=== PATIENT | female | born 1940 | race Caucasian/White ===

== ENCOUNTER → 2023-08-28 06:26 | Day surgery (SDC) | payer MEDICARE, OTHER, SELFPAY | LOC: GI 06:26 | PROVIDERS: ATTENDING PHYSICIAN Surgery | DX: R19.4 Change in bowel habit (principal); K57.30 Diverticulosis of large intestine without perforation or abscess without bleeding; R19.5 Other fecal abnormalities; Z09 Encounter for follow-up examination after completed treatment for conditions other than malignant neoplasm; Z98.0 Intestinal bypass and anastomosis status | CPT/HCPCS: 45330 ==

== ENCOUNTER 2023-12-22 13:18 | Emergency (ER) | payer MEDICARE, OTHER, SELFPAY ==
[2023-12-22 13:24] VITALS: BP 147/73
[2023-12-22 15:10] VITALS: BP 166/67
[2023-12-22 15:18] LABS: Urine Albumin Negative (Neg - Trace); Urine Bilirubin Negative (Negative); Urine Character Clear (Clear); Urine Color Yellow; Urine Glucose Negative (Negative); Urine Ketone Negative (Negative); Urine Leukocyte 1+ (Negative); Urine Nitrite Negative (Negative); Urine Occult Blood Negative (Negative); Urine Urobilinogen Negative (Neg - 1+)
[2023-12-22 15:21] LABS: % Basophils 1.8 % (0-2); % Eosinophils 2.9 % (0-6); % Immature Granulocytes 1.4 % (0-0.5); % Lymphocytes 16.1 % (20.5-51.1); % Monocytes 6.8 % (1.7-9.3); Absolute Basophils 0.1 10^3/uL (0-0.2); Absolute Eosinophils 0.1 10^3/uL (0-0.7); Absolute Lymphocytes 0.5 10^3/uL (1.2-3.4); Absolute Monocytes 0.2 10^3/uL (0.1-0.6); Hematocrit 27.1 % (37.0-47.0); Hemoglobin 9.3 g/dL (12.0-16.0); Mean Corp Hgb Conc. 34.3 g/dL (33.0-37.0); Mean Corpuscular Hgb 36.8 pg (27.0-31.0); Mean Corpuscular Volume 107.1 fL (81.0-99.0); Mean Platelet Volume 10.4 fL (7.4-10.4); Nucleated Red Blood Cells % 0 %; Platelet Count 184 10^3/uL (130-400); Red Blood Cell Count 2.53 10^6/uL (4.20-5.40); Red Cell Dist. Width 14.2 % (11.5-14.5); White Blood Cell Count 2.8 10^3/uL (4.8-10.8)
[2023-12-22 15:28] LABS: Urine Bacteria Few (Negative); Urine Red Blood Cell 0-2 /HPF (0-2)
--- NOTE | 2023-12-22 15:33 | ED.GENMED ---
History of Present Illness
General
Chief Complaint: Flank Pain
Source: patient
Exam Limitations: none
Time Seen by Provider: 12/22/23 15:07
Nursing documentation reviewed up to this point in time: agreed with
History of Present Illness
History of Present Illness:
Patient to ED with complaint of left flank pain. Pain started a few days ago, much worse this AM. Denies fever/chills. +nausesa, no v/d. No history of trauma. Pain manageable at rest, worse iwth movement. Taking oxycodeno without iprovement.
Brought to ED by spouse for eval.
Past History
Past History
ED Past Medical History: Cancer (Breast cancer with metastasis), GERD, HTN, Hypercholesterolemia, NIDDM and Other (Sleep apnea, sciatica, GERD)
ED Past Surgical History: Appendectomy, Orthopedic and Other ([facility])
Social History
Tobacco: Non-smoker
Alcohol: None
Review of Systems
Review of Systems
Allergies reviewed?: Yes
All Other Systems: ROS reviewed and negative except as documented in HPI and ROS
Constitutional: Reports no symptoms
EENT: Reports no symptoms
Respiratory: Reports no symptoms
Cardiac: Reports no symptoms
ABD/GI: Reports nausea
: Reports flank pain
Skin: Reports no symptoms
Neurological: Reports no symptoms
Psychiatric: Reports no symptoms
Phy Exam
General Physical Exam
General Presentation: well appearing and no apparent distress
General age: appears stated age
General Skin: warm
General Habitus: normal
General Mental: alert
Cardiovascular Exam
Cardiovascular Exam: regular rate/rhythm and no edema
Pulmonary Exam
Pulmonary Exam: lungs clear and no respiratory distress
Gastrointestinal Exam
Gastrointestinal Exam: normal bowel sounds, non tender, soft, no organomegaly, non distended and no cva tenderness
Musculoskeletal Exam
Musculoskeletal Exam: back pain and neuro vasc intact
Skin Exam
Skin Exam: normal color, warm/dry and no rash
Psychiatric Exam
Psychiatric Exam: normal mood/affect
Course
Orders/Labs/Results
Orders:
Orders
12/22/23 15:07
Complete Blood Count/With Diff Urgent
Comprehensive Metabolic Panel Urgent
UA Reflex to Culture [Urinalysis Reflex To Culture] Urgent
Date Specimen was Collected: 12/22/23
Time Specimen was Collected: 14:56
Urine Microscopic Reflex Cult Urgent
Urine Culture Urgent
MIL Source: U
Specimen Description:
Date Specimen was Collected: 12/22/23
Time Specimen was Collected: 14:56
12/22/23 15:32
CT Abd/pel Without Iv Or Oral Urgent
Comment:
Reason For Exam: left flank pain
Abnormal Lab Results
12/22/23
15:07
WBC 2.8 L 10^3/uL
(4.8-10.8)
RBC 2.53 L 10^6/uL
(4.20-5.40)
Hgb 9.3 L g/dL
(12.0-16.0)
Hct 27.1 L %
(37.0-47.0)
MCV 107.1 H fL
(81.0-99.0)
MCH 36.8 H pg
(27.0-31.0)
Absolute Lymphs (auto) 0.5 L 10^3/uL
(1.2-3.4)
Immature Gran % 1.4 H %
(0-0.5)
Lymphocytes % 16.1 L %
(20.5-51.1)
BUN 34 H mg/dl
(7-17)
Glucose 119 H mg/dl
(70-99)
Leukocyte Esterase Rfl 1+ A
(Negative)
Urine Bacteria (Reflex) Few A
(Negative)
12/22/23 15:07
12/22/23 15:07
Vital Signs
Initial and Last Documented VS:
Initial Vital Signs
Temp Pulse Resp BP Pulse Ox
97.4 F 91 18 147/73 94
12/22/23 13:24 12/22/23 13:24 12/22/23 13:24 12/22/23 13:24 12/22/23 13:24
Last Documented Vital Signs
Temp Pulse Resp BP Pulse Ox
97.4 F 91 18 159/106 93
12/22/23 13:24 12/22/23 13:24 12/22/23 13:24 12/22/23 16:00 12/22/23 16:15
*Radiology
Radiology exam reviewed: radiology read reviewed
*Pulse Oximetry
Patient hypoxic: no
*Critical Care Note
Total Time (30-74mins, 75-104mins- exclusive of procedures): Not Applicable
ED Attending Note
-
Portions of this chart may have been created with voice recognition software.� Occasional wrong word or��sound alike� substitutions may have occurred due to the inherent limitations of voice recognition software.
Discharge Plan
Departure
Patient Disposition: Home (Routine Discharge)
Date of Disposition: 12/22/23
Time of Disposition: 17:57
Patient with high blood pressure during this ER visit?: No
Condition: Good
Covid-19: Not Applicable
Discharge Problem:
Flank pain
Instructions: Back Pain
Prescriptions:
New
oxycodone 5 mg capsule
5 mg PO Q4H PRN (Reason: Pain) Qty: 10 0RF
No Action
omeprazole 40 MG capsule,delayed release(DR/EC)
40 mg PO DAILY
hydrochlorothiazide 25 MG tablet
25 mg PO DAILY
losartan [Cozaar] 100 MG tablet
100 mg PO DAILY
letrozole 2.5 mg Tablet
2.5 mg PO DAILY
rosuvastatin [Crestor] 20 mg Tablet
20 mg PO QPM
Gemtesa 75 mg Tablet
75 mg PO DAILY
Patient Comments:
10/04/22-patent has samples from pcp
ferrous sulfate 325 mg (65 mg iron) Tablet,Delayed Release (Dr/Ec)
325 mg PO DAILY
calcitriol 0.25 mcg Capsule
0.25 mcg PO DAILY
Ibrance 125 mg Capsule
125 mg PO DAILY
Rx Instructions:
Holding it as of 12/14/22 per her oncologist
magnesium citrate,mag oxide
400 mg PO DAILY
naproxen sodium [Aleve] 220 mg Capsule
220 mg PO DAILY PRN (Reason: pain)
oxycodone 5 mg tablet
5 - 10 mg PO Q6H PRN (Reason: moderate-severe pain) Qty: 30 0RF
Rx Instructions:
1 tab for moderate pain, 2 if severe.
Dx total joint.
ondansetron HCl 4 mg tablet
4 mg PO Q6H PRN (Reason: nausea and vomiting) Qty: 20 0RF
Rx Instructions:
Take 1/2 hour prior to Oxycodone if experiencing recurrent nausea.
mupirocin 2 % ointment
1 applic intranasal BID Qty: 1 0RF
aspirin 325 mg tablet
325 mg PO DAILY Qty: 1 0RF
Rx Instructions:
Take with food
magnesium hydroxide [Milk of Magnesia] 400 mg/5 mL suspension
30 ml PO HS PRN (Reason: Constipation) Qty: 1 0RF
docusate sodium [Colace] 100 mg capsule
100 mg PO BID Qty: 1 0RF
acetaminophen 500 mg Capsule
1,000 mg PO QID Qty: 0 0RF
Referrals:
Jayla Haji MD [Family Provider] -
Interventions
Interventions:
*Risk Screen - Suicide Last Done: 12/22/23 15:11
*General Assessment Last Done: 12/22/23 15:11
*Neglect/Abuse Screening Last Done: 12/22/23 15:11
*ED COVID-19 Vaccine History Last Done: 12/22/23 15:11
*Nursing Disposition Last Done: 12/22/23 18:27
BX-Gfmxbl-Jdjcfrqdle Assessment Last Done: 12/22/23 15:08
ED-Female Genitourinary Assessment Last Done: 12/22/23 15:08
Discharge Date and Time
Discharge Date/Time: 12/22/23 18:28
Print Language: SWISS
[2023-12-22 15:35] LABS: ALT (SGPT) 11 U/L (0-35); AST (SGOT) 22 U/L (14-36); Albumin 4.5 g/dl (3.5-5.0); Alkaline Phosphatase 62 U/L (38-126); Blood Urea Nitrogen 34 mg/dl (7-17); Calcium 9.5 mg/dl (8.4-10.2); Carbon Dioxide 28 mmol/L (22-30); Chloride 101 mmol/L (98-107); Glucose 119 mg/dl (70-99); Potassium 4.1 mmol/L (3.5-5.1); Sodium 137 mmol/L (135-145); Total Bilirubin 0.8 mg/dl (0.2-1.3); Total Protein 6.9 g/dl (6.3-8.2)
[2023-12-22 16:00] VITALS: BP 159/106
== END 2023-12-22 18:28 | disposition home or self-care (01) ==
LOC: EMR 13:18
PROVIDERS: Emergency Medicine; EMERGENCY PHYSICIAN Emergency Medicine; FAMILY PHYSICIAN Internal Medicine
DX: R10.9 Unspecified abdominal pain (principal); R11.2 Nausea with vomiting, unspecified; I10 Essential (primary) hypertension; K21.9 Gastro-esophageal reflux disease without esophagitis; E78.00 Pure hypercholesterolemia, unspecified; E11.9 Type 2 diabetes mellitus without complications; M54.30 Sciatica, unspecified side; K57.90 Diverticulosis of intestine, part unspecified, without perforation or abscess without bleeding; G47.30 Sleep apnea, unspecified; M19.90 Unspecified osteoarthritis, unspecified site; Z85.3 Personal history of malignant neoplasm of breast; C79.51 Secondary malignant neoplasm of bone; Z85.828 Personal history of other malignant neoplasm of skin; Z96.652 Presence of left artificial knee joint
CPT/HCPCS: 99284; 74176; 80053; 81003; 81015; 85025; 87086

== ENCOUNTER 2024-09-19 14:37 | Emergency (ER) | payer MEDICARE, OTHER, SELFPAY ==
[2024-09-19] MEDS: TORADOL 15 MG IM (16:29)
[2024-09-19 16:32] VITALS: BP 131/97
--- NOTE | 2024-09-19 16:43 | ED.GENMED ---
History of Present Illness
General
Chief Complaint: Back Pain
Time Seen by Provider: 09/19/24 15:44
History of Present Illness
History of Present Illness:
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 Patient reports pain for the past month, however has worsened in the past
week. She has been taking oxycodone, Tylenol, Motrin. Denies known inciting injury or trauma. Denies numbness or tingling to her leg. Has had increased difficulty ambulating secondary to pain, has been using a walker. Denies bowel or bladder
issues. Denies fever. Reports remote history of sciatica several years ago. Pain from the right side of the back radiates all the way down to her leg. Denies additional acute medical complaints
Past History
Past History
ED Past Medical History: Cancer (Breast cancer with metastasis), GERD, HTN, Hypercholesterolemia, NIDDM and Other (Sleep apnea, sciatica, GERD)
ED Past Surgical History: Appendectomy, Orthopedic and Other ([facility])
Social History
Tobacco: Non-smoker
Alcohol: None
Phy Exam
Physical Exam
Physical Exam:
General: Well-appearing, no clinical signs of dehydration, nontoxic and in no acute distress
HEENT: protecting airway
Neck: appears supple
CV: Normal heart rate, regular rhythm
Resp: No accessory muscle use, no increased work of breathing, lungs clear to auscultation bilaterally
Abd: No distention
Extremities: No deformities, no swelling. No midline back tenderness. Tenderness to the right lumbar musculature into the right gluteal region. Range of motion to the right lower extremity is intact with distal sensation and pulses intact.
Neuro: alert, no focal neurologic deficit
: deferred
Rectal: deferred
Psych: Normal affect
Skin: Intact
Course
Orders/Labs/Results
Orders:
Orders
09/19/24 14:45
Crisis Consult Urgent
Reason for Consult: depression
Comment: hx of metastatic breast cancer with chronic pain
09/19/24 16:17
Ketorolac [Toradol] 15 mg IM NOW STA
Hip, Right 2-3 Views [CR Hip - RT w/wo Pel 2-3 Vw*] Urgent
Comment:
Reason For Exam: pain, suspected sciatica
Include a pelvis x-ray?: Yes
Abnormal Lab Results
09/19/24
17:41
POC Glucose 110 H mg/dl
(70-99)
Vital Signs
Initial and Last Documented VS:
Initial Vital Signs
BP
131/97
09/19/24 16:32
Last Documented Vital Signs
Temp Pulse Resp BP Pulse Ox
98.2 F 80 16 131/97 98
09/19/24 17:38 09/19/24 17:38 09/19/24 17:38 09/19/24 16:32 09/19/24 17:38
MDM/Problems Addressed
MDM/Problems Addressed:
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 Vital signs on arrival are normal
On exam patient is resting comfortably, no acute distress or discomfort. Symptom presentation and physical exam appears most consistent with sciatica. No midline spinal tenderness. Some generalized tenderness to the right gluteal region.
Pathological hip fracture is a consideration given history of metastasis. Will screen with x-ray imaging, however range of motion is grossly intact without any neurovascular compromise. No fever, systemic symptoms, or midline tenderness, without
concern for spinal abscess or infection. No red flag such as bowel or bladder incontinence, focal weakness, or any sensory deficits on exam, without present concern for spinal compression. Will treat with Toradol and reassess for improvement, had
oxycodone prior to arrival.
17:50 - X-ray without any significant acute pathology. Continue to suspect sciatic component. Did offer oral steroids, however patient is diabetic. Patient like to proceed with steroids, notes that her glucose is controlled. Will check glucose
level. However ultimately feel stable for discharge with continued outpatient supportive therapy. Patient feels comfortable going home with follow-up with pain management. Return precautions discussed the patient verbalized understanding. Of
note, in patient suicide screen, did report some hopelessness. Crisis at bedside, offered resources, no concern for self-harm behavior.
*Critical Care Note
Total Time (30-74mins, 75-104mins- exclusive of procedures): Not Applicable
ED Attending Note
-
Portions of this chart may have been created with voice recognition software.� Occasional wrong word or��sound alike� substitutions may have occurred due to the inherent limitations of voice recognition software.
Discharge Plan
Departure
Prescriptions:
No Action
omeprazole 40 MG capsule,delayed release(DR/EC)
40 mg PO DAILY
hydrochlorothiazide 25 MG tablet
25 mg PO DAILY
losartan [Cozaar] 100 MG tablet
100 mg PO DAILY
letrozole 2.5 mg Tablet
2.5 mg PO DAILY
rosuvastatin [Crestor] 20 mg Tablet
20 mg PO QPM
Gemtesa 75 mg Tablet
75 mg PO DAILY
Patient Comments:
10/04/22-patent has samples from pcp
ferrous sulfate 325 mg (65 mg iron) Tablet,Delayed Release (Dr/Ec)
325 mg PO DAILY
calcitriol 0.25 mcg Capsule
0.25 mcg PO DAILY
Ibrance 125 mg Capsule
125 mg PO DAILY
Rx Instructions:
Holding it as of 12/14/22 per her oncologist
magnesium citrate,mag oxide
400 mg PO DAILY
naproxen sodium [Aleve] 220 mg Capsule
220 mg PO DAILY PRN (Reason: pain)
oxycodone 5 mg tablet
5 - 10 mg PO Q6H PRN (Reason: moderate-severe pain) Qty: 30 0RF
Rx Instructions:
1 tab for moderate pain, 2 if severe.
Dx total joint.
ondansetron HCl 4 mg tablet
4 mg PO Q6H PRN (Reason: nausea and vomiting) Qty: 20 0RF
Rx Instructions:
Take 1/2 hour prior to Oxycodone if experiencing recurrent nausea.
mupirocin 2 % ointment
1 applic intranasal BID Qty: 1 0RF
aspirin 325 mg tablet
325 mg PO DAILY Qty: 1 0RF
Rx Instructions:
Take with food
magnesium hydroxide [Milk of Magnesia] 400 mg/5 mL suspension
30 ml PO HS PRN (Reason: Constipation) Qty: 1 0RF
docusate sodium [Colace] 100 mg capsule
100 mg PO BID Qty: 1 0RF
acetaminophen 500 mg Capsule
1,000 mg PO QID Qty: 0 0RF
oxycodone 5 mg capsule
5 mg PO Q4H PRN (Reason: Pain) Qty: 10 0RF
Referrals:
Jayla Haji MD [Family Provider] -
Interventions
Interventions:
*Risk Screen - Suicide Last Done: 09/19/24 14:40
*General Assessment Last Done: 09/19/24 14:40
*Neglect/Abuse Screening Last Done: 09/19/24 16:28
*ED- Fall Risk Assessment Last Done: 09/19/24 16:28
*ED COVID-19 Vaccine History Last Done: 09/19/24 16:28
ED-Musculoskeletal Assessment Last Done: 09/19/24 16:33
Discharge Date and Time
Print Language: WELSH
[2024-09-19 17:42] LABS: Glucose - Point of Care 110 mg/dl (70-99)
== END 2024-09-19 18:13 | disposition home or self-care (01) ==
LOC: EMR 14:37
PROVIDERS: EMERGENCY PHYSICIAN Student in an Organized Health Care Education/Training Program; FAMILY PHYSICIAN Internal Medicine
DX: M54.41 Lumbago with sciatica, right side (principal); K21.9 Gastro-esophageal reflux disease without esophagitis; I10 Essential (primary) hypertension; E78.00 Pure hypercholesterolemia, unspecified; E11.9 Type 2 diabetes mellitus without complications; G47.30 Sleep apnea, unspecified; F32.A Depression, unspecified; Z85.3 Personal history of malignant neoplasm of breast; Z90.49 Acquired absence of other specified parts of digestive tract
CPT/HCPCS: 99283; 96372; 73502; 82962

== ENCOUNTER 2024-09-26 17:10 | Emergency (ER) | payer MEDICARE, OTHER, SELFPAY ==
[2024-09-26 17:20] VITALS: BP 174/98
[2024-09-26 17:33] LABS: Urine Albumin 3+ (Neg - Trace); Urine Bilirubin Negative (Negative); Urine Character Cloudy (Clear); Urine Color Red; Urine Glucose Negative (Negative); Urine Ketone Negative (Negative); Urine Leukocyte 3+ (Negative); Urine Nitrite Negative (Negative); Urine Occult Blood 4+ (Negative); Urine Urobilinogen Negative (Neg - 1+)
[2024-09-26 17:40] LABS: Urine Bacteria Moderate (Negative); Urine Red Blood Cell >100 /HPF (0-2); Urine Squamous Cell 0-2 /LPF (Few); Urine White Cell 90-100 /HPF (0-5)
--- NOTE | 2024-09-26 19:37 | ED.GENMED ---
History of Present Illness
General
Chief Complaint: Urinary Symptoms
Source: patient
Exam Limitations: none
Time Seen by Provider: 09/26/24 19:25
Nursing documentation reviewed up to this point in time: agreed with
History of Present Illness
History of Present Illness:
Patient to ED with complaint of urinary frequency and cloudy urine. Symptoms started yesterday. She denies fever/chills, abominal or back pain, n/v. Brought to ED by spouse for eval.
Past History
Past History
ED Past Medical History: Cancer (Breast cancer with metastasis), GERD, HTN, Hypercholesterolemia, NIDDM and Other (Sleep apnea, sciatica, GERD)
ED Past Surgical History: Appendectomy, Orthopedic and Other ([facility])
Social History
Tobacco: Non-smoker
Alcohol: None
Phy Exam
General Physical Exam
General Presentation: well appearing and no apparent distress
General age: appears stated age
General Skin: warm and dry
General Habitus: normal
General Mental: alert
Gastrointestinal Exam
Gastrointestinal Exam: normal bowel sounds, non tender, soft, no organomegaly, no pulsatile mass, non distended and no cva tenderness
Musculoskeletal Exam
Musculoskeletal Exam: full ROM and neuro vasc intact
Skin Exam
Skin Exam: normal color, warm/dry and no rash
Psychiatric Exam
Psychiatric Exam: normal mood/affect
Sepsis
Sepsis Screening
Sepsis Assessment: Sepsis Ruled Out (NO evidence of sepsis on exam. SHe has been afebrile. Denies chills. No back or abdominal pain. No vomiting. Neurologically baseline. No sepsis work-up indicated.)
Sepsis Screen
Sepsis Screen: Sepsis Ruled Out
Date: 09/27/24
Time: 16:31
Course
Orders/Labs/Results
Orders:
Orders
09/26/24 17:22
Urinalysis Reflex To Culture Urgent
Date Specimen was Collected: 09/26/24
Time Specimen was Collected: 17:16
Urine Microscopic Reflex Cult Urgent
Urine Culture Urgent
MIL Source: U
Specimen Description:
Date Specimen was Collected: 09/26/24
Time Specimen was Collected: 17:16
09/26/24 19:32
Cephalexin Monohydrate [Keflex] 500 mg PO NOW STA
Abnormal Lab Results
09/26/24
17:22
Ur Occult Blood Reflex 4+ A
(Negative)
Leukocyte Esterase Rfl 3+ A
(Negative)
Urine RBC >100 A /HPF
(0-2)
Urine WBC (Reflex) 90-100 A /HPF
(0-5)
Urine Bacteria (Reflex) Moderate A
(Negative)
Urine Albumin (Reflex) 3+ A
(Neg - Trace)
Vital Signs
Initial and Last Documented VS:
Initial Vital Signs
Temp Pulse Resp BP Pulse Ox
97.2 F 94 22 174/98 95
09/26/24 17:20 09/26/24 17:20 09/26/24 17:20 09/26/24 17:20 09/26/24 17:20
Last Documented Vital Signs
Temp Pulse Resp BP Pulse Ox
97.2 F 94 22 174/98 95
09/26/24 17:20 09/26/24 17:20 09/26/24 17:20 09/26/24 17:20 09/26/24 17:20
*Pulse Oximetry
Patient hypoxic: no
*Critical Care Note
Total Time (30-74mins, 75-104mins- exclusive of procedures): Not Applicable
Update Note
Update Note:
Patient to ED with complaint of urinary frequency and cloudy urine x 24 hours. UA today confirms UTI. Urine culture sent and results are pending. Started on Keflex in ED, rx sent to pharmacy. She remains afebrile, no abdominal or back pain. No
vomiting. Non toxic appearing. Will discharge home and she will follow up with PCP. Given instructions on s/s to return to ED and she is agreeable to plan.
ED Attending Note
-
Portions of this chart may have been created with voice recognition software.� Occasional wrong word or��sound alike� substitutions may have occurred due to the inherent limitations of voice recognition software.
Discharge Plan
Departure
Patient Disposition: Home (Routine Discharge)
Date of Disposition: 09/26/24
Time of Disposition: 19:33
Patient with high blood pressure during this ER visit?: No
Condition: Good
Covid-19: Not Applicable
Discharge Problem:
UTI (urinary tract infection)
Instructions: Urinary Tract Infection, Adult (DC)
Prescriptions:
New
cephalexin 500 mg capsule
500 mg PO BID 7 Days Qty: 14 0RF
No Action
omeprazole 40 MG capsule,delayed release(DR/EC)
40 mg PO DAILY
hydrochlorothiazide 25 MG tablet
25 mg PO DAILY
losartan [Cozaar] 100 MG tablet
100 mg PO DAILY
letrozole 2.5 mg Tablet
2.5 mg PO DAILY
rosuvastatin [Crestor] 20 mg Tablet
20 mg PO QPM
Gemtesa 75 mg Tablet
75 mg PO DAILY
Patient Comments:
10/04/22-patent has samples from pcp
ferrous sulfate 325 mg (65 mg iron) Tablet,Delayed Release (Dr/Ec)
325 mg PO DAILY
calcitriol 0.25 mcg Capsule
0.25 mcg PO DAILY
Ibrance 125 mg Capsule
125 mg PO DAILY
Rx Instructions:
Holding it as of 12/14/22 per her oncologist
magnesium citrate,mag oxide
400 mg PO DAILY
naproxen sodium [Aleve] 220 mg Capsule
220 mg PO DAILY PRN (Reason: pain)
oxycodone 5 mg tablet
5 - 10 mg PO Q6H PRN (Reason: moderate-severe pain) Qty: 30 0RF
Rx Instructions:
1 tab for moderate pain, 2 if severe.
Dx total joint.
ondansetron HCl 4 mg tablet
4 mg PO Q6H PRN (Reason: nausea and vomiting) Qty: 20 0RF
Rx Instructions:
Take 1/2 hour prior to Oxycodone if experiencing recurrent nausea.
mupirocin 2 % ointment
1 applic intranasal BID Qty: 1 0RF
aspirin 325 mg tablet
325 mg PO DAILY Qty: 1 0RF
Rx Instructions:
Take with food
magnesium hydroxide [Milk of Magnesia] 400 mg/5 mL suspension
30 ml PO HS PRN (Reason: Constipation) Qty: 1 0RF
docusate sodium [Colace] 100 mg capsule
100 mg PO BID Qty: 1 0RF
acetaminophen 500 mg Capsule
1,000 mg PO QID Qty: 0 0RF
oxycodone 5 mg capsule
5 mg PO Q4H PRN (Reason: Pain) Qty: 10 0RF
ketorolac 10 mg tablet
10 mg PO Q8H PRN (Reason: Pain) 5 Days Qty: 15 0RF
Activity Restrictions/Additional Instructions:
Follow up with your family doctor. Return to the emergency department immediately for fever/chills, pain in your abdomen or back (different from your typical back pain), vomiting, or for any further concerns.
Interventions
Interventions:
*Risk Screen - Suicide Last Done: 09/26/24 17:20
*General Assessment Last Done: 09/26/24 17:20
*Neglect/Abuse Screening Last Done: 09/26/24 17:20
*Nursing Disposition Last Done: 09/26/24 20:05
ED-Female Genitourinary Assessment Last Done: 09/26/24 20:00
Discharge Date and Time
Discharge Date/Time: 09/26/24 20:05
Print Language: [place]
[2024-09-26] MEDS: KEFLEX 500 MG PO (20:01)
== END 2024-09-26 20:05 | disposition home or self-care (01) ==
LOC: EMR 17:10
PROVIDERS: Emergency Medicine; EMERGENCY PHYSICIAN Student in an Organized Health Care Education/Training Program; FAMILY PHYSICIAN Internal Medicine
DX: N39.0 Urinary tract infection, site not specified (principal); I10 Essential (primary) hypertension; K21.9 Gastro-esophageal reflux disease without esophagitis; E78.00 Pure hypercholesterolemia, unspecified; G47.30 Sleep apnea, unspecified; E11.36 Type 2 diabetes mellitus with diabetic cataract; C79.51 Secondary malignant neoplasm of bone; M54.30 Sciatica, unspecified side; K57.90 Diverticulosis of intestine, part unspecified, without perforation or abscess without bleeding; M19.90 Unspecified osteoarthritis, unspecified site; Z96.652 Presence of left artificial knee joint; Z85.3 Personal history of malignant neoplasm of breast; Z85.828 Personal history of other malignant neoplasm of skin; Z92.3 Personal history of irradiation; Z98.0 Intestinal bypass and anastomosis status
CPT/HCPCS: 99283; 81003; 81015; 87086

== ENCOUNTER 2024-10-07 04:28 | Inpatient (IN) | payer MEDICARE, OTHER, SELFPAY ==
[2024-10-06 17:45] VITALS: BP 182/120
[2024-10-06 19:58] VITALS: BP 170/96
[2024-10-06 22:14] VITALS: BP 153/73
--- NOTE | 2024-10-06 22:25 | ED.GENMED ---
History of Present Illness
General
Chief Complaint: Musculo-Skeletal Complaint
Source: patient
Exam Limitations: none
Time Seen by Provider: 10/06/24 22:17
History of Present Illness
History of Present Illness:
See MDM
Past History
Past History
ED Past Medical History: Cancer (Breast cancer with metastasis), GERD, HTN, Hypercholesterolemia, NIDDM and Other (Sleep apnea, sciatica, GERD)
ED Past Surgical History: Appendectomy, Orthopedic and Other ([facility])
Social History
Tobacco: Non-smoker
Alcohol: None
Phy Exam
Physical Exam
Physical Exam:
See MDM
Course
Orders/Labs/Results
Orders:
Orders
10/06/24 22:23
CT Abd/pel Without Iv Or Oral Urgent
Comment:
Reason For Exam: R flank pain
Morphine Sulfate 4 mg IV NOW STA
10/06/24 22:24
Urinalysis Reflex To Culture Urgent
10/06/24 22:49
Complete Blood Count/With Diff Urgent
Comprehensive Metabolic Panel Urgent
Magnesium Urgent
Comment: ADDED
10/06/24 23:37
Add On- LAB Urgent
Tests Added?: Magnesium
Calcium Gluconate 1,000 mg IV NOW STA
10/07/24 00:48
Morphine Sulfate 4 mg IV NOW STA
10/07/24 00:58
Electrocardiogram (*1) Urgent
Reason for Study: Fatigue / Weakness
EKG- Treatment ONCE
10/07/24 01:55
Magnesium Sulfate 4 Gram/100Ml [Magnesium Sulfate] 4 gram in 100 ml IV NOW
Abnormal Lab Results
10/06/24
22:49
WBC 2.6 L 10^3/uL
(4.8-10.8)
RBC 2.28 L 10^6/uL
(4.20-5.40)
Hgb 8.2 L g/dL
(12.0-16.0)
Hct 23.7 L %
(37.0-47.0)
MCV 103.9 H fL
(81.0-99.0)
MCH 36.0 H pg
(27.0-31.0)
RDW 15.4 H %
(11.5-14.5)
Plt Count 118 L 10^3/uL
(130-400)
MPV 10.8 H fL
(7.4-10.4)
Absolute Lymphs (auto) 0.2 L 10^3/uL
(1.2-3.4)
Immature Gran % 1.1 H %
(0-0.5)
Neutrophils % 83.8 H %
(42.2-75.2)
Lymphocytes % 8.3 L %
(20.5-51.1)
Glucose 128 H mg/dl
(70-99)
Calcium 6.4 L* mg/dl
(8.4-10.2)
Magnesium 0.9 L* mg/dl
(1.6-2.3)
Total Protein 5.8 L g/dl
(6.3-8.2)
10/06/24 22:49
10/06/24 22:49
Vital Signs
Initial and Last Documented VS:
Initial Vital Signs
Temp Pulse Resp BP Pulse Ox
97.6 F 110 16 182/120 95
10/06/24 17:45 10/06/24 17:45 10/06/24 17:45 10/06/24 17:45 10/06/24 17:45
Last Documented Vital Signs
Temp Pulse Resp BP Pulse Ox
97.6 F 90 15 147/69 92
10/06/24 17:45 10/06/24 22:50 10/06/24 22:50 10/07/24 01:24 10/07/24 01:45
MDM/Problems Addressed
Differential Diagnosis Includes:
HPI and MDM Narrative:
84-year-old female presenting for evaluation of worsening back pain. Patient took oxycodone at home with minimal relief. Patient states this feels like her sciatica. However, she has a negative straight leg raise. The pain distribution appears
to be along the proximal IT band. But she also points to her inguinal canal. This was associated with back pain earlier. Will obtain CT to rule out kidney stone pathology versus hernia. Patient was recently seen emergency department and treated
as a UTI. Urine culture with mixed alba. Will recheck urine
Physical exam
General: Well appearing and non-toxic
HEENT: protecting airway
Neck: appears supple
CV: No evidence of cyanosis
Resp: No accessory muscle use
Abd: Non-distended and nontender
Back: no tenderness
Extremities: No deformities. Mild tenderness to right inguinal canal and proximal IT band
Neuro: alert
Psych: Normal affect
Skin: Intact
Problems Addressed including Acute and Chronic Conditions affecting care:
1. Flank pain
Acuity: acute
Prognosis: stable
Details: Will obtain CT
2. Cloudy urine
Acuity: acute
Prognosis: stable
Details: Will recheck urinalysis
Updates
Patient found to be hypocalcemic. Patient given dose of IV calcium. Will obtain magnesium level as well
Patient also found to be hypomagnesemia. Will replete and admit
Differential Diagnosis (but not limited to): Pyonephritis, UTI, muscle strain, sciatica
Testing considered: Pelvic x-ray
Drug therapy (if applicable): OTC meds, please see d/c instruction regarding Rx drugs
Amount and/or Complexity of Data Reviewed
Clinical info obtained from: Patient
External data reviewed: Recent urine culture showed mixed alba
Labs I independently reviewed (but not limited to): Low magnesium, low calcium
Radiology: The CT scan was personally and independently reviewed. In addition, official CT report reviewed.
Pulse Ox: not hypoxic
EKG independently reviewed: Sinus rhythm, normal axis, no STEMI
Dough Scaler And Mixer: N/A
Critical Care: N/A
Risk of Complication:
Social Determinants of health: Good social support
Discussed with other providers: Hospitalist
Escalation of Care includes Admit/Obs: Given the low magnesium and calcium, will admit
Occasional wrong word or 'sound a like' substitutions may have occurred due to the inherent limitations of voice recognition software. Read the chart carefully and recognize, using context, where substitutions have occurred.
*Critical Care Note
Total Time (30-74mins, 75-104mins- exclusive of procedures): Not Applicable
ED Attending Note
-
Portions of this chart may have been created with voice recognition software.� Occasional wrong word or��sound alike� substitutions may have occurred due to the inherent limitations of voice recognition software.
Discharge Plan
Departure
Patient Disposition: Admit
Date of Disposition: 10/07/24
Time of Disposition: 00:57
Admit to: Telemetry
Presentation/result/management discussed w/ accepting MD/DO: Hospitalist
Discharge Problem:
Hypocalcemia, Hypomagnesemia, Sciatica
Prescriptions:
No Action
omeprazole 40 MG capsule,delayed release(DR/EC)
40 mg PO DAILY
hydrochlorothiazide 25 MG tablet
25 mg PO DAILY
letrozole 2.5 mg Tablet
2.5 mg PO DAILY
rosuvastatin [Crestor] 20 mg Tablet
20 mg PO QPM
Gemtesa 75 mg Tablet
75 mg PO DAILY
Patient Comments:
10/04/22-patent has samples from pcp
ferrous sulfate 325 mg (65 mg iron) Tablet,Delayed Release (Dr/Ec)
325 mg PO DAILY
calcitriol 0.25 mcg Capsule
0.25 mcg PO DAILY
Ibrance 125 mg Capsule
125 mg PO DAILY
Rx Instructions:
Holding it as of 12/14/22 per her oncologist
naproxen sodium [Aleve] 220 mg Capsule
220 mg PO DAILY PRN (Reason: pain)
oxycodone 5 mg tablet
5 - 10 mg PO Q6H PRN (Reason: moderate-severe pain) Qty: 30 0RF
Rx Instructions:
1 tab for moderate pain, 2 if severe.
Dx total joint.
ondansetron HCl 4 mg tablet
4 mg PO Q6H PRN (Reason: nausea and vomiting) Qty: 20 0RF
Rx Instructions:
Take 1/2 hour prior to Oxycodone if experiencing recurrent nausea.
aspirin 325 mg tablet
325 mg PO DAILY Qty: 1 0RF
Rx Instructions:
Take with food
acetaminophen 500 mg Capsule
1,000 mg PO QID Qty: 0 0RF
Referrals:
UNKNOWN - PT DOES,NOT KNOW [Unknown Provider]
Interventions
Interventions:
*Risk Screen - Suicide Last Done: 10/06/24 17:45
ED-Musculoskeletal Assessment Last Done: 10/06/24 23:02
Discharge Date and Time
Print Language: GUATEMALAN
[2024-10-06] MEDS: MORPHINE SULFATE 4 MG IV (22:43)
[2024-10-06 22:50] VITALS: BP 153/73; BMI 27.1
[2024-10-06 23:00] VITALS: BP 145/70
[2024-10-06 23:03] LABS: % Basophils 1.1 % (0-2); % Eosinophils 0.4 % (0-6); % Immature Granulocytes 1.1 % (0-0.5); % Lymphocytes 8.3 % (20.5-51.1); % Monocytes 5.3 % (1.7-9.3); % Neutrophils 83.8 % (42.2-75.2); Absolute Lymphocytes 0.2 10^3/uL (1.2-3.4); Absolute Monocytes 0.1 10^3/uL (0.1-0.6); Absolute Neutrophils 2.2 10^3/uL (1.4-6.5); Hematocrit 23.7 % (37.0-47.0); Hemoglobin 8.2 g/dL (12.0-16.0); Mean Corp Hgb Conc. 34.6 g/dL (33.0-37.0); Mean Corpuscular Volume 103.9 fL (81.0-99.0); Mean Platelet Volume 10.8 fL (7.4-10.4); Nucleated Red Blood Cells % 0 %; Platelet Count 118 10^3/uL (130-400); Red Blood Cell Count 2.28 10^6/uL (4.20-5.40); Red Cell Dist. Width 15.4 % (11.5-14.5); White Blood Cell Count 2.6 10^3/uL (4.8-10.8)
[2024-10-06 23:18] LABS: ALT (SGPT) < 10 U/L (0-35); AST (SGOT) 19 U/L (14-36); Albumin 3.8 g/dl (3.5-5.0); Alkaline Phosphatase 64 U/L (38-126); Blood Urea Nitrogen 16 mg/dl (7-17); Calcium 6.4 mg/dl (8.4-10.2); Carbon Dioxide 24 mmol/L (22-30); Chloride 107 mmol/L (98-107); Estimated Creatinine Clearance 53 ml/min; Glucose 128 mg/dl (70-99); Potassium 3.8 mmol/L (3.5-5.1); Sodium 139 mmol/L (135-145); Total Bilirubin 1.3 mg/dl (0.2-1.3); Total Protein 5.8 g/dl (6.3-8.2); eGFR > 60.00
[2024-10-07] VITALS (14 sets, daily range): BP systolic 121–200; BP diastolic 57–99; PULSE 106; BMI 26.6
[2024-10-07] MEDS: CALCIUM GLUCONATE 1000 MG IV (00:10)
[2024-10-07 00:35] LABS: Magnesium 0.9 mg/dl (1.6-2.3)
[2024-10-07] MEDS: MORPHINE SULFATE 4 MG IV (01:21)
[2024-10-07] MEDS: MAGNESIUM SULFATE 100 IV (02:17)
--- NOTE | 2024-10-07 03:59 | HPS.HSE ---
Family Physician
-
Family Physician: Jayla Haji
Chief Complaint
-
Weakness, N/V
History of Present Illness
Patient is an 84y F with PMH significant for breast cancer metastatic to bone, hypertension and sciatic pain who presents to ED complaining of 'not feeling well'. Patient states that she had a sense of feeling poorly throughout the day today.
She has difficulty being more specific. She has been dealing with RLE radicular pain recently and had LESI about 2 weeks ago without relief. She reports L sided facial pain / pressure which has also been ongoing for some time. On review of
systems, patient reveals that she has had N/V for the past 2-3 days. A few loose stools.
No fevers / chills.
No new medications.
Patient notes that she has not been taking her calcitriol or magnesium supplements - she is not sure why.
Medical History
Past Medical History
Past Medical History: Reports Other
Additional Past Medical History:
Breast Cancer Metastatic to Bone
Vulvar Cancer
Hypertension
Pancytopenia
OAB
Colovesicular Fistula
Past Surgical History: Reports Other
Additional Past Surgical History:
Left Shoulder Surgery
Bilateral TKA
Right Lumpectomy
Appendectomy
Cholecystectomy
Vulvar Cancer Resection
Sigmoidectomy
Spinal Surgery
Social History
Tobacco: Non-smoker
Alcohol: None
Drug: None
Family History
Family History: Not pertinent
Allergies / Home Medications
Allergies reflects when Allergies were last updated in [facility].
Home Medications with original date entered in [facility]
Allergy/Medication List:
Allergies
Allergy/AdvReac Type Severity Reaction Status Date / Time
No Known Allergies Allergy Verified 10/06/24 17:45
Home Medications
omeprazole 40 mg capsule,delayed release 40 mg PO DAILY Gastrointestinal issue 05/26/19
hydrochlorothiazide 25 mg tablet 25 mg PO DAILY Fluid retention/Swelling 06/17/20
letrozole 2.5 mg tablet 2.5 mg PO DAILY Hormonal Agent 10/04/22
rosuvastatin 20 mg tablet (Crestor) 20 mg PO QPM High Cholesterol 10/04/22
vibegron 75 mg tablet (Gemtesa) 75 mg PO DAILY Urinary Issue 10/04/22
calcitriol 0.25 mcg capsule 0.25 mcg PO DAILY 12/21/22
ferrous sulfate 325 mg (65 mg iron) tablet,delayed release 325 mg PO DAILY 12/21/22
naproxen sodium 220 mg capsule (Aleve) 220 mg PO DAILY PRN pain 12/21/22
palbociclib 125 mg capsule (Ibrance) 125 mg PO DAILY 12/21/22
Held on 01/08/23. Instructions: resume when oncology and Lee advise
ondansetron HCl 4 mg tablet 4 mg PO Q6H PRN nausea and vomiting #20 tabs 12/25/22
oxycodone 5 mg tablet 5 - 10 mg (1 - 2 x 5 mg) PO Q6H PRN moderate-severe pain #30 tabs 12/25/22
acetaminophen 500 mg capsule 1,000 mg (2 x 500 mg) PO QID #0 caps 01/08/23
aspirin 325 mg tablet 325 mg PO DAILY blood clot prevention #1 tab 01/08/23
Review of Systems
-
History Source: Patient
A 12 point ROS was completed and negative except as noted: Yes
Constitutional: Reports Fatigue; Denies Fever or Chills
EENT: Denies Sore Throat
Respiratory: Denies Cough or Trouble Breathing
Cardiac: Denies Chest Pain or Palpitations
Abdomen/GI: Reports Nausea, Vomiting and Diarrhea; Denies Abdominal Pain, Bloody Stools or Black Stools
: Reports Frequency and Urgency; Denies Dysuria or Flank Pain
Musculoskeletal: Reports Other (RLE Sciatic pain); Denies Joint Pain or Edema
Neurological: Reports Headache; Denies Dizzy
Psych: Denies Depression or Anxiety
Physical Exam
Vital Signs
Vital Signs
Temp Pulse Resp BP Pulse Ox
97.6 F 79 17 132/59 91
10/06/24 17:45 10/07/24 03:00 10/07/24 03:00 10/07/24 03:00 10/07/24 03:00
Physical Exam
General: Other (84y F in no acute distress.)
HEENT: Moist mucous membranes and PERRLA
Respiratory: Clear; No Wheezes, Rales or Rhonchi
Cardiac: S1/S2 and Regular Rhythm; No Murmur
GI: Soft, Non Tender, Non Distended and Normal Bowel Sounds
Musculoskeletal: No Clubbing, No Cyanosis and No Edema
Neuro: AO x 3 and Nonfocal/grossly intact
Laboratory Results
-
10/06/24 22:49
10/06/24 22:49
Laboratory Results
Total Bilirubin 1.3 mg/dl (0.2-1.3) 10/06/24 22:49
AST 19 U/L (14-36) 10/06/24 22:49
ALT < 10 U/L (0-35) 10/06/24 22:49
Alkaline Phosphatase 64 U/L (38-126) 10/06/24 22:49
Impression/Plan
-
A/P: Patient is an 84y F with PMH significant for breast cancer metastatic to bone who presents to ED complaining of N/V for 2 days and feeling weak / fatigued.
N/V
Hypomagnesemia
Hypocalcemia
Prolonged QTc
- Admit for further evaluation and treatment.
- Mg / Ca replacement started in the ED.
- Follow labs and provide additional replacement if needed.
- Resume usual calcitriol dose.
- Monitor on tele for now and follow serial EKG to evaluate QTc.
- PT eval for weakness.
- Follow for clinical improvement.
RLE Radicular Pain
L Facial Pain
- Trial of gabapentin for improved pain control.
- Follow-up with Pain Management (Dr. Sanz) as an outpatient.
Breast Cancer Metastatic to Bone
Chronic Pain secondary to the above
Pancytopenia
- Continue current Ibrance / letrozole without changes.
- Follow cell counts for any acute changes.
- Continue current pain med regimen. Add gabapentin as noted above.
- Follow-up with Oncology at [facility] after discharge.
Benign Hypertension
- BP elevated on initial arrival.
- Improved without specific intervention (excepting Mg replacement).
- Continue usual BP medications and adjust as needed for adequate control.
Urinary Symptoms
- Patient with chronic OAB. Hold Gemtesa acutely due to hypertension.
- Check UA. Treated for UTI one week ago (Keflex) - culture at that time negative / contaminated.
GERD
- Would hold PPI for now given marked hypomagnesemia.
- Monitor for development of any heartburn / reflux symptoms.
DVT Prophylaxis: SCDs
Code Status: Full
[2024-10-07 05:45] LABS: Urine Albumin 2+ (Neg - Trace); Urine Bilirubin Negative (Negative); Urine Character Clear (Clear); Urine Color Yellow; Urine Glucose Negative (Negative); Urine Ketone Negative (Negative); Urine Leukocyte 2+ (Negative); Urine Nitrite Negative (Negative); Urine Occult Blood Negative (Negative); Urine Urobilinogen Negative (Neg - 1+)
[2024-10-07 06:18] LABS: Urine Bacteria Few (Negative); Urine Red Blood Cell None Seen /HPF (0-2); Urine White Cell >100 /HPF (0-5)
[2024-10-07] MEDS: LR 1000 IV ×2 (07:21→20:39)
[2024-10-07] MEDS: ASPIRIN 325 MG PO (07:21)
[2024-10-07] MEDS: NEURONTIN 100 MG PO ×3 (07:21→21:36)
[2024-10-07] MEDS: DILAUDID 0.5 MG IV ×2 (07:22→17:23)
[2024-10-07] MEDS: TYLENOL 1000 MG PO ×3 (07:22→20:40)
[2024-10-07] MEDS: FEMARA 2.5 MG PO (07:23)
[2024-10-07] MEDS: ROCALTROL 0.25 MCG PO (07:27)
[2024-10-07 09:03] LABS: Blood Urea Nitrogen 14 mg/dl (7-17); Calcium 7.1 mg/dl (8.4-10.2); Carbon Dioxide 24 mmol/L (22-30); Chloride 106 mmol/L (98-107); Estimated Creatinine Clearance 62 ml/min; Glucose 122 mg/dl (70-99); Magnesium 2.6 mg/dl (1.6-2.3); Potassium 3.7 mmol/L (3.5-5.1); Sodium 138 mmol/L (135-145); eGFR > 60.00
--- NOTE | 2024-10-07 09:11 | W.PN.HOSP.TC ---
Addendum entered and electronically signed by Paulo Quijano MD 10/07/24 20:46:
Attending Addendum-
I saw and evaluated the patient. I reviewed the resident�s note and agree with findings and plan as documented in the resident�s note. Sub: Continues to feel weak. States she has pain in RLE. Has frequency urinary. Feels nauseous due to pain. No
vom. Denies fevers chills. Full 12 point ROS reviewed and negative except as documented Exam: Vitals reviewed in chart GEN-NAD heart RRR lungs clear abd soft ND NT pos BS LE no edema Neuroa AAO x 3
#Hypomagnesemia
#Hypocalcemia
#Prolonged QTc
- likely from letrozol and recent calcitriol w/d
- Mg / Ca replacement
- Follow labs and provide additional replacement as needed.
- Resume usual calcitriol dose.
- repeat EKG
- PT eval for weakness.
- Follow for clinical improvement.
#RLE Radicular Pain
L Facial Pain
- Trial of gabapentin for improved pain control.
- Follow-up with Pain Management (Dr. Sanz) as an outpatient.
- PT OT eval add lido patch
# Breast Cancer Metastatic to Bone
Chronic Pain secondary to the above
Pancytopenia from ibrance
- Continue current Ibrance / letrozole without changes.
- Follow cell counts for any acute changes.
- Continue current pain med regimen. Add gabapentin as noted above.
- Follow-up with Oncology at [facility] after discharge.
#Benign Hypertension
- BP elevated on initial arrival.
- Improved without specific intervention (excepting Mg replacement).
- Continue HCTZ (caused hyperca!)
#UTI
- Patient with chronic OAB. Hold Gemtesa acutely due to hypertension.
- awaiting cx Treated for UTI one week ago (Keflex) - possible macrobid vs augmentin vs doxy avoid QTc prolonging meds
#GERD
- Would hold PPI for now given marked hypomagnesemia.
- Monitor for development of any heartburn / reflux symptoms.
DVT Prophylaxis: SCDs
Code Status: Full
Dispo DC home in am
ACP
Patient consented to discuss, was alone, time spent explanation of advance directives, changes in health status, patient�s health care wishes if the patient becomes unable to make health decisions, goals of care, code status, and prognosis- 16
minutes
Time spent coordinating care, review of plan of care with resident, personally reviewed previous records in EMR, med rec, labs, radiology, d/w nursing, total time documented is exclusive of any additional time listed that was spent in advance care
planning discussion -�51 minutes
Original Note:
Today's Communication/Plan
-
Calcium gluconate
Repeat EKG
Start doxycycline
Assessment / Plan
Assessment / Plan
84y F with PMH significant for breast cancer metastatic to bone who presents to ED complaining of N/V for 2 days and feeling weak / fatigued.
Plan
#Hypocalcemia
#Hypomagnesemia
EKG showed QTc prolongation
Serum calcium�6.4, ionized calcium�0.86
Magnesium�0.9
PTH pending
Hypocalcemia related to her home medications�letrozole/Ibrance
Patient also reports she is no longer taking calcitriol, likely contributing to low calcium levels.
Patient received calcium gluconate and magnesium sulfate in the ER.
Serum calcium now at 7.1, will replete.
Calcitriol resumed
Repeat EKG
Continue telemetry
PT/OT eval
#UTI�
Patient already finished a course of Keflex for UTI 1 week ago
Still symptomatic
U/a�evidence of UTI
U/C pending
Will start doxycycline 100 mg, twice daily
#Pancytopenia
Likely related to metastatic breast cancer or treatment related�Ibrance/letrozole.
Monitor cell count
Chronic pain secondary to mets
Continue gabapentin
#Right lumbar radiculopathy
Chronic
Continue gabapentin
Lidocaine patch
#Hypertension
Will resume her home hydrochlorothiazide 25 mg daily
#GERD
PPI on hold due to hypomagnesemia
DVT prophylaxis�SCDs
Full code
Anticipated Discharge: Within 24 hours
Subjective/Interval History
-
Date of Service: October 07, 2024
Patient reports feeling tired. She also had nausea.
Patient reports having radiating lower back pain to her right knee.
Objective Data
-
Labs:
Laboratory Results
10/06/24 10/07/24 10/07/24
22:49 08:42 09:00
WBC 2.6 L
Hgb 8.2 L
Hct 23.7 L
Plt Count 118 L
Sodium 139 138
Potassium 3.8 3.7
Chloride 107 106
Carbon Dioxide 24 24
BUN 16 14
Creatinine 0.7 0.6
Glucose 128 H 122 H
Calcium 6.4 L* 7.1 L Pending
Total Bilirubin 1.3
AST 19
ALT < 10
Alkaline Phosphatase 64
Vital Signs:
Vital Signs
Temp Pulse Resp BP Pulse Ox
97.9 F 77 16 156/83 94
10/07/24 07:09 10/07/24 08:44 10/07/24 07:09 10/07/24 08:44 10/07/24 07:09
Physical Exam
-
General: Well Developed, Well Nourished and No Apparent Distress
HEENT: Normocephalic and Atraumatic
Respiratory: Clear to Auscultation
Cardiac: Regular Rhythm and S1/S2
GI: Soft, Nontender, Nondistended and Normal Bowel Sounds
Musculoskeletal: Other
Skin: Warm and Dry
Neuro: Awake, Alert, Oriented and AO x 3
Psych: Calm
[2024-10-07 09:59] LABS: Ionized Calcium 0.86 mMOL/L (1.15-1.33)
[2024-10-07 11:31] LABS: Vitamin D, 25-OH*** 31.4 ng/mL (30-80)
[2024-10-07 11:57] LABS: TSH Reflex To Free T4 0.77 uIU/ml (0.47-4.68)
[2024-10-07] MEDS: ROXICODONE 5 MG PO (12:05)
[2024-10-07] MEDS: COMPAZINE 5 MG IV (12:31)
[2024-10-07 14:24] LABS: Calcium 7.1 mg/dl (8.4-10.2)
[2024-10-07] MEDS: LIDOCAINE 4% PATCH 1 PATCH TOPICAL (15:24)
[2024-10-07] MEDS: CALCIUM GLUCONATE 100 IV (16:58)
[2024-10-07] MEDS: CRESTOR 20 MG PO (17:25)
[2024-10-07] MEDS: DESENEX/MITRAZOL/ZEASORB 1 APPLIC TOPICAL (20:35)
[2024-10-07] MEDS: VIBRAMYCIN 100 MG PO (20:40)
[2024-10-08] MEDS: TYLENOL PO (03:27)
[2024-10-08 03:36] VITALS: BP 147/70
[2024-10-08 04:50] VITALS: BMI 27.4
[2024-10-08 05:38] LABS: Hematocrit 21.6 % (37.0-47.0); Hemoglobin 7.5 g/dL (12.0-16.0); Mean Corp Hgb Conc. 34.7 g/dL (33.0-37.0); Mean Corpuscular Hgb 36.1 pg (27.0-31.0); Mean Corpuscular Volume 103.8 fL (81.0-99.0); Platelet Count 109 10^3/uL (130-400); Red Blood Cell Count 2.08 10^6/uL (4.20-5.40); Red Cell Dist. Width 15.5 % (11.5-14.5); White Blood Cell Count 2.5 10^3/uL (4.8-10.8)
[2024-10-08 06:01] LABS: Blood Urea Nitrogen 21 mg/dl (7-17); Calcium 7.7 mg/dl (8.4-10.2); Carbon Dioxide 27 mmol/L (22-30); Chloride 108 mmol/L (98-107); Estimated Creatinine Clearance 54 ml/min; Glucose 118 mg/dl (70-99); Magnesium 1.9 mg/dl (1.6-2.3); Phosphorus 3.5 mg/dl (2.5-4.5); Potassium 3.9 mmol/L (3.5-5.1); Sodium 140 mmol/L (135-145); eGFR > 60.00
--- NOTE | 2024-10-08 06:46 | W.PN.HOSP.TC ---
Addendum entered and electronically signed by Paulo Quijano MD 10/08/24 20:59:
Attending Addendum-
I saw and evaluated the patient. I reviewed the resident�s note and agree with findings and plan as documented in the resident�s note. Sub: Feels improved. Seen with . Wants to go home. Denies fevers chills. Full 12 point ROS reviewed and
negative except as documented Exam: Vitals reviewed in chart GEN-NAD heart RRR lungs clear abd soft ND NT pos BS LE no edema Neuroa AAO x 3
#Hypomagnesemia
#Hypocalcemia
#Prolonged QTc
- likely from letrozol and recent calcitriol w/d
- Mg / Ca replacement
- addition ca gluconate today
- Resume usual calcitriol dose.
- repeat EKG
- PT eval - home care with PT VN
- QTC improved EKG personally reviewed and
#RLE Radicular Pain
L Facial Pain
- improved with Trial of gabapentin for improved pain control.
- Follow-up with Pain Management (Dr. Sanz) as an outpatient.
- abd ct-interval development of compression deformities of T12 and L1, as described. 3 mm retropulsion at T12, resulting in at least moderate central canal stenosis. Scoliosis with multilevel discogenic and facet degenerative changes are noted.
Relatively stable advanced central canal stenosis from L3-4 through L5-S1. Advanced multilevel bilateral osseous neural foraminal encroachment. - d/w patient
- cont lido patch
# Breast Cancer Metastatic to Bone
Chronic Pain secondary to the above
Pancytopenia from ibrance
- Continue current Ibrance / letrozole without changes.
- Follow cell counts for any acute changes.
- Continue current pain med regimen. Add gabapentin as noted above.
- Follow-up with Oncology at [facility] after discharge.
#Benign Hypertension
- BP elevated on initial arrival.
- Improved without specific intervention (excepting Mg replacement).
- Continue HCTZ (caused hyperca!)
#UTI
- Patient with chronic OAB. Hold Gemtesa acutely due to hypertension.
- awaiting cx Treated for UTI one week ago (Keflex) -cont doxy avoid QTc prolonging meds - cx GNB - will follow up as OP
#GERD
- Would hold PPI for now given marked hypomagnesemia.
- Monitor for development of any heartburn / reflux symptoms.
# Anemia of CD
- f/u s OP with hemeonc
- transfuse for hb < 7
DVT Prophylaxis: SCDs
Code Status: Full
Dispo DC home with
Time spent coordinating care, DC planning, review of DC plan of care with resident, transition of care, review of records, med rec/scripts sent electronically, consults, notes, d/w consultants, nursing, , and CM� 33 mins
Original Note:
Today's Communication/Plan
-
Discharged today to home with home health
Continue calcitriol
Continue antibiotics as prescribed at discharge
Assessment / Plan
Assessment / Plan
84y F with PMH significant for breast cancer metastatic to bone who presents to ED complaining of N/V for 2 days and feeling weak / fatigued.
Plan
#Hypocalcemia
#Hypomagnesemia
EKG showed QTc prolongation
Serum calcium�6.4, ionized calcium�0.86
Magnesium�0.9, corrected to 1.9
PTH pending
Hypocalcemia related to her home medications�letrozole/Ibrance
Patient also reports she is no longer taking calcitriol, likely contributing to low calcium levels.
Patient received calcium gluconate and magnesium sulfate in the ER.
Serum calcium now at 7.7, will replete.
Calcitriol resumed
Repeat EKG�QT C�486
PT/OT eval�recommended home health
#UTI�
Patient already finished a course of Keflex for UTI 1 week ago
Still symptomatic
U/a�evidence of UTI
U/C pending
Will start doxycycline 100 mg, twice daily, patient will continue at discharge.
#Pancytopenia
Likely related to metastatic breast cancer or treatment related�Ibrance/letrozole.
Monitor cell count
Chronic pain secondary to mets
Continue gabapentin
#Right lumbar radiculopathy
Chronic
Continue gabapentin
Lidocaine patch
#Hypertension
Will resume her home hydrochlorothiazide 25 mg daily
#GERD
PPI on hold due to hypomagnesemia
DVT prophylaxis�SCDs
Full code
Anticipated Discharge: Today
Subjective/Interval History
-
Date of Service: October 08, 2024
Patient reports feeling well.
Objective Data
-
Labs:
Laboratory Results
10/08/24 10/08/24
05:07 13:00
WBC 2.5 L
Hgb 7.5 L
Hct 21.6 L
Plt Count 109 L
Sodium 140 Pending
Potassium 3.9 Pending
Chloride 108 H Pending
Carbon Dioxide 27 Pending
BUN 21 H Pending
Creatinine 0.7 Pending
Glucose 118 H Pending
Calcium 7.7 L Pending
Vital Signs:
Vital Signs
Temp Pulse Resp BP Pulse Ox
97.8 F 80 18 147/70 97
10/08/24 03:36 10/08/24 03:36 10/08/24 03:36 10/08/24 03:36 10/08/24 03:36
I&O
10/06/24 10/07/24 10/08/24
06:59 06:59 06:59
Intake Total 2179
Balance 2179
Physical Exam
-
General: No Apparent Distress
HEENT: Normocephalic and Atraumatic
Respiratory: Clear to Auscultation
Cardiac: Regular Rhythm and S1/S2
GI: Soft, Nontender, Nondistended and Normal Bowel Sounds
Skin: Warm and Dry
Neuro: Awake, Alert, Oriented and AO x 3
Psych: Calm
[2024-10-08] MEDS: LIDOCAINE 4% PATCH 1 PATCH TOPICAL (07:30)
[2024-10-08] MEDS: CALCIUM GLUCONATE 100 IV (07:30)
[2024-10-08] MEDS: DILAUDID 0.5 MG IV (07:30)
[2024-10-08] MEDS: NEURONTIN 100 MG PO (07:31)
[2024-10-08] MEDS: ROCALTROL 0.25 MCG PO (07:31)
[2024-10-08] MEDS: ORETIC 25 MG PO (07:31)
[2024-10-08] MEDS: FEMARA 2.5 MG PO (07:31)
[2024-10-08] MEDS: ASPIRIN 325 MG PO (07:31)
[2024-10-08] MEDS: VIBRAMYCIN 100 MG PO (07:31)
[2024-10-08] MEDS: TYLENOL 1000 MG PO (07:31)
[2024-10-08] MEDS: DESENEX/MITRAZOL/ZEASORB 1 APPLIC TOPICAL (07:33)
[2024-10-08 07:45] VITALS: BP 193/95
[2024-10-08] MEDS: LR 1000 IV (08:19)
[2024-10-08 08:30] VITALS: BP 168/82; PULSE 77; O2SAT 95
[2024-10-08 08:54] VITALS: BP 168/82; PULSE 79; O2SAT 94
[2024-10-08 11:40] VITALS: BP 136/62
--- NOTE | 2024-10-08 12:13 | VNURNOTE ---
[facility] liaison met with patient at bedside. She is familiar with [facility] services, she was on service with us a few years ago. Explained that services are skilled, intermittent, short term. Explained homebound criteria. Reviewed with patient that [facility]
will contact her within 1-2 days after DC. Patient is agreeable. Referral placed in [facility].
--- NOTE | 2024-10-08 12:21 | CM ---
Alert awake oriented patient who lives with her Susan in a 1 story home with 1 steps to enter.She is independent in activates of daily living.She does drive sometime .She used a walker.
Had [facility] in past . No SNF hx
Pharmacy [facility]
PCP Dr Martínez Benjamin
PLAN Home with [facility]
[2024-10-10 10:14] LABS: Intact PTH 289.3 pg/ml (13.6-85.8)
== END 2024-10-08 14:27 | disposition home health service (06) | DRG 809 ==
LOC: 3 WEST ACU 04:28
PROVIDERS: Student in an Organized Health Care Education/Training Program; ADMITTING PHYSICIAN Hospitalist; ATTENDING PHYSICIAN Family Medicine; EMERGENCY PHYSICIAN Student in an Organized Health Care Education/Training Program; FAMILY PHYSICIAN Internal Medicine
DX: D61.811 Other drug-induced pancytopenia (principal); C79.51 Secondary malignant neoplasm of bone; N39.0 Urinary tract infection, site not specified; E83.42 Hypomagnesemia; E83.51 Hypocalcemia; M54.16 Radiculopathy, lumbar region; M41.9 Scoliosis, unspecified; M48.062 Spinal stenosis, lumbar region with neurogenic claudication; C50.911 Malignant neoplasm of unspecified site of right female breast; G89.3 Neoplasm related pain (acute) (chronic); Z79.899 Other long term (current) drug therapy; I10 Essential (primary) hypertension; K21.9 Gastro-esophageal reflux disease without esophagitis; N32.81 Overactive bladder; M54.30 Sciatica, unspecified side; Z85.44 Personal history of malignant neoplasm of other female genital organs; E11.9 Type 2 diabetes mellitus without complications; Z96.653 Presence of artificial knee joint, bilateral; Z79.82 Long term (current) use of aspirin; E78.00 Pure hypercholesterolemia, unspecified; G47.30 Sleep apnea, unspecified
CPT/HCPCS: 51798; 74176; 80048; 80053; 81003; 81015; 82306; 82330; 83735; 83970; 84100; 84443; 85025; 85027; 87077; 87086; 87186; 93005; 96374; 96375; 96376; 97116; 97163; 97167; 97530; 99285